=== PATIENT | male | born 1970 | race American Indian/Alaskan Native ===

== ENCOUNTER 2020-06-08 11:57 | Emergency (ER) | payer SELFPAY ==
--- NOTE | 2020-06-08 12:54 | Event Note ---
ED Screening Note ED Screening Note: abd pain that began 2 days ago +diarrhea +nausea no vomiting lightheaded states he ate after someone and then began feeling the symptoms he takes prilosec, states he has had to have his esophagus stretched with endoscopy twice no allergies to meds This initial assessment/diagnostic orders/clinical plan/treatment(s) is/are subject to change based on patients health status, clinical progression and re- assessment by fellow clinical providers in the ED. Further treatment and workup at subsequent clinical providers discretion. Patient/guardian urged not to elope from the ED as their condition may be serious if not clinically assessed and managed. Initial orders include: labs
[2020-06-08 14:31] LABS: Basophils # (Auto) 0.1 K/mm3 (0.0-0.1); Basophils % (Auto) 1.3 % (0.0-1.8); Eosinophils # (Auto) 0.2 K/mm3 (0.0-0.4); Eosinophils % (Auto) 3.7 % (0.0-4.3); Hematocrit 43.8 % (35.5-45.6); Hemoglobin 14.8 gm/dl (11.8-15.2); Lymphocytes % (Auto) 47.8 % (13.4-35.0); Mean Corpuscular HGB Conc 34 % (32-34); Mean Corpuscular Volume 96 fl (84-94); Monocytes # (Auto) 0.6 K/mm3 (0.0-0.8); Monocytes % (Auto) 10.2 % (0.0-7.3); Platelet Count 190 K/mm3 (140-440); Red Blood Count 4.58 M/mm3 (3.65-5.03); Red Cell Distribution Width 12.5 % (13.2-15.2)
[2020-06-08 14:51] LABS: Alanine Aminotransferase 25 units/L (7-56); BUN/Creatinine Ratio 11; Blood Urea Nitrogen 10 mg/dL (9-20); Calcium 9.5 mg/dL (8.4-10.2); Hemolysis Index 11
[2020-06-08] MEDS ORDERED: ONDANSETRON 4 MG ODT TAB PO ONE (15:24)
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
[2020-06-08 16:15] VITALS: BP 145/93
== END 2020-06-08 16:24 | disposition home or self-care (01) ==
LOC: ED 11:57
DX: R11.0 Nausea (principal); R19.7 Diarrhea, unspecified; Z79.899 Other long term (current) drug therapy; Z98.890 Other specified postprocedural states
CPT/HCPCS: 36415; 80053; 83690; 85025; Q0162

== ENCOUNTER 2022-02-20 20:01 | Emergency (ER) | payer SELFPAY | END 2022-02-21 23:52 | disposition left against medical advice (07) | LOC: ED 20:01 | DX: Z00.00 Encounter for general adult medical examination without abnormal findings (principal); Z53.21 Procedure and treatment not carried out due to patient leaving prior to being seen by health care provider ==